=== PATIENT | female | born 1970 | race Caucasian/White ===

== ENCOUNTER 2016-10-01 12:22 | Emergency (ER) | payer MEDICAID ==
[2016-10-01 12:35] VITALS: BP 151/77
== END 2016-10-01 13:30 | disposition home or self-care (01) ==
LOC: ED 12:22
DX: L60.0 Ingrowing nail (principal)
CPT/HCPCS: J2001

== ENCOUNTER 2018-08-23 17:14 | Emergency (ER) | payer MEDICAID ==
[~2018-08-23] VITALS: Ht 149.9 cm; Wt 81.6 kg
[2018-08-23 17:15] VITALS: Ht 149.9 cm; Wt 81.6 kg
[2018-08-23 18:03] VITALS: BP 114/85
== END 2018-08-23 18:03 | disposition home or self-care (01) ==
LOC: ED 17:14
DX: L03.031 Cellulitis of right toe (principal); I10 Essential (primary) hypertension; E11.9 Type 2 diabetes mellitus without complications

== ENCOUNTER 2018-08-26 13:24 | Emergency (ER) | payer MEDICAID ==
[~2018-08-26] VITALS: Ht 152.4 cm; Wt 83.0 kg
[2018-08-26 14:30] VITALS: Ht 152.4 cm; Wt 83.0 kg
[2018-08-26 16:48] VITALS: BP 128/70
== END 2018-08-26 16:48 | disposition home or self-care (01) ==
LOC: ED 13:24
DX: L03.031 Cellulitis of right toe (principal); I10 Essential (primary) hypertension; E11.9 Type 2 diabetes mellitus without complications
CPT/HCPCS: J2001

== ENCOUNTER 2018-08-29 07:44 | Emergency (ER) | payer MEDICAID ==
[~2018-08-29] VITALS: Ht 162.6 cm; Wt 82.1 kg
[2018-08-29 07:49] VITALS: BP 128/74; Ht 162.6 cm; Wt 82.1 kg
== END 2018-08-29 08:22 | disposition home or self-care (01) ==
LOC: ED 07:44
DX: L03.031 Cellulitis of right toe (principal); I10 Essential (primary) hypertension; E11.9 Type 2 diabetes mellitus without complications

== ENCOUNTER 2019-05-11 15:17 | Emergency (ER) | payer MEDICAID ==
[~2019-05-11] VITALS: Ht 144.8 cm; Wt 85.7 kg
[2019-05-11 15:30] VITALS: Ht 144.8 cm; Wt 85.7 kg
[2019-05-11 21:58] VITALS: BP 142/76
== END 2019-05-11 21:58 | disposition home or self-care (01) ==
LOC: ED 15:17
DX: N76.0 Acute vaginitis (principal); B96.89 Other specified bacterial agents as the cause of diseases classified elsewhere; I10 Essential (primary) hypertension; E11.9 Type 2 diabetes mellitus without complications
CPT/HCPCS: 87491; 87591